=== PATIENT | female | born 1970 | race Caucasian/White ===

== ENCOUNTER 2022-07-30 07:21 | Day surgery (SDC) | payer OTHER ==
[~2022-07-30] VITALS: Ht 154.9 cm; Wt 59.4 kg
[2022-07-30 08:39] LABS: HCG,QUAL RESULT NEGATIVE (NEGATIVE)
[2022-07-30] MEDS ORDERED: DEXAMETHASONE SOD PHOSPHATE 4 MG/ML VIAL ONE (10:13)
[2022-07-30] MEDS ORDERED: MIDAZOLAM HCL 2 MG/2 ML VIAL (VERSED) ONE (10:13)
[2022-07-30] MEDS ORDERED: ceFAZolin SODIUM 1 GM VIAL ONE (10:13)
[2022-07-30] MEDS ORDERED: ONDANSETRON HCL 4 MG/2 ML VIAL ONE (10:13)
[2022-07-30] MEDS ORDERED: LR 1,000 ML IV.SOLN IV ONE (10:13)
[2022-07-30] MEDS ORDERED: KETOROLAC TROMETHAMINE 30 MG VIAL ONE (10:13)
[2022-07-30] MEDS ORDERED: NS IRRIG SOLN 1000 ML IR ONE (10:13)
[2022-07-30] MEDS ORDERED: PROPOFOL 200MG/ 20ML VIAL (DIPRIVAN) IV ONE (10:13)
[2022-07-30 13:36] VITALS: BP_SYST 126
== END 2022-07-30 13:22 | disposition home or self-care (01) ==
LOC: SDS 07:21 → SMU 07:22 → SDS 13:22
PROVIDERS: ATTEND Podiatrist Primary Podiatric Medicine
DX: M20.42 Other hammer toe(s) (acquired), left foot (principal); M62.472 Contracture of muscle, left ankle and foot
CPT/HCPCS: 87081; 28285; 28899; 84703; J0690; J1100; J1885; J3465; J2405; J2704; J7120; C1713